=== PATIENT | male | born 1965 | race Hispanic/Latino ===

== ENCOUNTER 2021-04-24 16:02 | Emergency (ER) | payer SELFPAY ==
[~2021-04-24] VITALS: Ht 182.9 cm; Wt 121.6 kg
[~2021-04-24 16:02] MED LIST: AMBIEN10 MG PO; ASPIR 8181 MG PO; LEVOTHYROXINE75 MCG PO; LISINOPRIL10 MG PO; METHOCARBAMOL750 MG PO; MINOCYCLINE HCL50 MG PO; PRAVASTATIN SOD40 MG PO; TEMAZEPAM30 MG PO; TESTOSTERO200 MG/1 M IM
[2021-04-24] MEDS ORDERED: CASIRIVIMAB/IMDEVIMAB 10 ML in SODIUM CHLORIDE 0.9% 100 ML IV ONE (16:30)
== END 2021-04-24 16:55 | disposition home or self-care (01) ==
LOC: ER 16:08
DX: U07.1 COVID-19 (principal); R05.9 Cough, unspecified; I10 Essential (primary) hypertension; E78.5 Hyperlipidemia, unspecified; F41.9 Anxiety disorder, unspecified
CPT/HCPCS: 99283; J7050

== ENCOUNTER 2022-07-01 09:13 | Inpatient (IN) | payer BC, OTHER ==
[~2022-07-01] VITALS: Ht 185.4 cm; Wt 124.7 kg
[2022-07-01] MEDS ORDERED: SODIUM CHLORIDE 0.9% 1000ML 1,000 ML IV STA (09:36)
[2022-07-01] MEDS ORDERED: ONDANSETRON HCL INJ 2MG/ML 2ML 2 MG/ML VIAL IV STA (09:36)
[2022-07-01] MEDS ORDERED: DICYCLOMINE HCL 20 MG/2 ML VIAL IM ONE (09:45)
[2022-07-01 09:55] LABS: BASOPHILS # (AUTO) 0.1 (0.0-0.1); BASOPHILS % 0.6 % (0.0-1.0); EOSINOPHILS # (AUTO) 0.1 (0.0-0.4); HEMATOCRIT 52.6 % (38.2-49.6); HEMOGLOBIN 17.4 g/dL (14.0-18.0); LYMPHOCYTES # (AUTO) 1.4 (1.0-3.2); LYMPHOCYTES % 15.5 % (18.0-39.1); MEAN CORPUSCULAR HEMOGLOBIN 30.5 pg (28-32); MEAN CORPUSCULAR HGB CONC 33.1 g/dL (31-35); MEAN CORPUSCULAR VOLUME 92.3 fL (81-99); MONOCYTES # (AUTO) 0.6 (0.2-0.8); NEUTROPHILS # (AUTO) 6.6 (2.1-6.9); NEUTROPHILS % 74.9 % (38.7-80.0); PLATELET COUNT 196 x10e3/uL (140-360); RED CELL DISTRIBUTION WIDTH 13.4 % (11.7-14.4)
[2022-07-01] MEDS ORDERED: HYDROMORPHONE 1MG/1ML INJ IV STA (10:11)
[2022-07-01] MEDS ORDERED: DIATRIZOATE MEGL/DIATRIZOA SOD 30 ML BTL PO ONE (10:23)
[2022-07-01 10:35] LABS: CLARITY,URINE CLEAR (CLEAR); COLOR,URINE YELLOW (YELLOW); KETONES,URINE NEGATIVE (NEGATIVE); LEUKOCYTE ESTERASE ,URINE NEGATIVE (NEGATIVE); NITRITE,URINE NEGATIVE (NEGATIVE); PARTIAL THROMBOPLASTIN TIME 34.2 seconds (23.8-35.5); PROTEIN,URINE DIPSTICK 2+ (NEGATIVE); URINE UROBILINOGEN 1 mg/dL (0.2 - 1)
[2022-07-01 10:45] LABS: ALBUMIN 3.3 g/dL (3.5-5.0); ALBUMIN/GLOBULIN RATIO 0.8 (0.8-2.0); ANION GAP 12.2 mmol/L (8-16); BACTERIA,URINE RARE /HPF; CALCIUM 9.5 mg/dL (8.4-10.2); CREATININE, SERUM 0.98 mg/dL (0.72-1.25); EPITHELIAL CELLS,URINE RARE /LPF; MAGNESIUM 1.8 MG/DL (1.3-2.1); POTASSIUM 4.2 mmol/L (3.5-5.1); RBC,URINE 21-50 /HPF (0-5); WBC,URINE (MAN) 0-5 /HPF (0-5)
[2022-07-01 10:51] LABS: CREATINE KINASE MB 1.9 ng/mL (0-5.0)
[2022-07-01 11:26] LABS: INR 1.04; PROTHROMBIN TIME 13.8 seconds (11.9-14.5)
[2022-07-01] MEDS ORDERED: IOPAMIDOL 370 MG/ML 100 ML INFUS..BTL INJ ONE (11:28)
[2022-07-01] MEDS ORDERED: ONDANSETRON HCL INJ 2MG/ML 2ML 2 MG/ML VIAL IV PRN (12:30)
[2022-07-01] MEDS: HYDROMORPHONE 1MG/1ML INJ IV PRN ×4 (13:39→23:10)
[2022-07-01] MEDS: SODIUM CHLORIDE 0.9% 1000ML 1,000 ML IV SCH ×2 (13:39→21:13)
[2022-07-01] MEDS ORDERED: ACETAMINOPHEN 1000 MG/100 ML IV PRN (17:00)
[2022-07-01] MEDS ORDERED: ACETAMINOPHEN 1000 MG/100 ML 100 ML IV ONE (17:06)
[2022-07-01] MEDS: MEROPENEM 1 GM in SODIUM CHLORIDE 0.9% 100 ML IV SCH (20:09)
[2022-07-01 21:00] VITALS: BP 136/91
[2022-07-01 21:15] VITALS: BP 136/91
[2022-07-01 21:38] VITALS: BP 132/91
[2022-07-01] MEDS: TEMAZEPAM 15 MG CAP PO SCH (23:10)
[2022-07-02] VITALS (7 sets, daily range): BP systolic 124–149; BP diastolic 83–99
[2022-07-02] MEDS: HYDROMORPHONE 1MG/1ML INJ IV PRN ×5 (04:27→22:09)
[2022-07-02] MEDS: MEROPENEM 1 GM in SODIUM CHLORIDE 0.9% 100 ML IV SCH ×3 (04:34→20:25)
[2022-07-02] MEDS: SODIUM CHLORIDE 0.9% 1000ML 1,000 ML IV SCH ×3 (04:34→20:25)
[2022-07-02 06:10] LABS: BASOPHILS % 0.5 % (0.0-1.0); EOSINOPHILS # (AUTO) 0.1 (0.0-0.4); EOSINOPHILS % 2.3 % (0.0-6.0); HEMATOCRIT 46.4 % (38.2-49.6); HEMOGLOBIN 15.6 g/dL (14.0-18.0); LYMPHOCYTES # (AUTO) 1.3 (1.0-3.2); LYMPHOCYTES % 20.9 % (18.0-39.1); MEAN CORPUSCULAR HEMOGLOBIN 32.4 pg (28-32); MEAN CORPUSCULAR HGB CONC 33.6 g/dL (31-35); MEAN CORPUSCULAR VOLUME 96.5 fL (81-99); MONOCYTES # (AUTO) 0.4 (0.2-0.8); MONOCYTES % 7.2 % (4.4-11.3); NEUTROPHILS # (AUTO) 4.2 (2.1-6.9); PLATELET COUNT 146 x10e3/uL (140-360); RED BLOOD COUNT 4.81 x10e6/uL (4.3-5.7); RED CELL DISTRIBUTION WIDTH 14.1 % (11.7-14.4)
[2022-07-02 06:26] LABS: ALBUMIN 2.7 g/dL (3.5-5.0); ALBUMIN/GLOBULIN RATIO 0.7 (0.8-2.0); ANION GAP 13.2 mmol/L (8-16); CALCIUM 8.8 mg/dL (8.4-10.2); CREATININE, SERUM 0.95 mg/dL (0.72-1.25); POTASSIUM 4.2 mmol/L (3.5-5.1)
[2022-07-02] MEDS: TEMAZEPAM 15 MG CAP PO SCH (22:07)
[2022-07-03] VITALS (7 sets, daily range): BP systolic 135–156; BP diastolic 92–108
[2022-07-03] MEDS: HYDROMORPHONE 1MG/1ML INJ IV PRN ×6 (02:10→20:44)
[2022-07-03] MEDS: MEROPENEM 1 GM in SODIUM CHLORIDE 0.9% 100 ML IV SCH ×3 (04:23→20:44)
[2022-07-03] MEDS: SODIUM CHLORIDE 0.9% 1000ML 1,000 ML IV SCH ×3 (04:23→22:38)
[2022-07-03] MEDS: HYDRALAZINE HCL 20 MG/ML VIAL IV PRN (15:59)
[2022-07-03] MEDS: TEMAZEPAM 15 MG CAP PO SCH (22:31)
[2022-07-04] VITALS (7 sets, daily range): BP systolic 134–158; BP diastolic 84–99
[2022-07-04] MEDS: HYDROMORPHONE 1MG/1ML INJ IV PRN ×5 (00:47→20:18)
[2022-07-04] MEDS: MEROPENEM 1 GM in SODIUM CHLORIDE 0.9% 100 ML IV SCH ×3 (04:07→20:21)
[2022-07-04 06:12] LABS: BASOPHILS % 0.5 % (0.0-1.0); EOSINOPHILS # (AUTO) 0.1 (0.0-0.4); EOSINOPHILS % 2.4 % (0.0-6.0); HEMATOCRIT 48.2 % (38.2-49.6); HEMOGLOBIN 15.9 g/dL (14.0-18.0); LYMPHOCYTES # (AUTO) 1.2 (1.0-3.2); LYMPHOCYTES % 20.4 % (18.0-39.1); MEAN CORPUSCULAR VOLUME 90.9 fL (81-99); MONOCYTES # (AUTO) 0.6 (0.2-0.8); MONOCYTES % 9.9 % (4.4-11.3); NEUTROPHILS # (AUTO) 3.9 (2.1-6.9); NEUTROPHILS % 65.6 % (38.7-80.0); PLATELET COUNT 228 x10e3/uL (140-360); RED CELL DISTRIBUTION WIDTH 12.4 % (11.7-14.4)
[2022-07-04 06:35] LABS: ALBUMIN 2.8 g/dL (3.5-5.0); ALBUMIN/GLOBULIN RATIO 0.7 (0.8-2.0); ANION GAP 15.6 mmol/L (8-16); CALCIUM 8.8 mg/dL (8.4-10.2); CREATININE, SERUM 0.81 mg/dL (0.72-1.25); POTASSIUM 3.6 mmol/L (3.5-5.1)
[2022-07-04] MEDS: SODIUM CHLORIDE 0.9% 1000ML 1,000 ML IV SCH (13:45)
[2022-07-04] MEDS: HYDRALAZINE HCL 20 MG/ML VIAL IV PRN (17:20)
[2022-07-04] MEDS: TEMAZEPAM 15 MG CAP PO SCH (21:41)
[2022-07-05] VITALS: BP 139/91
[2022-07-05] MEDS: HYDROMORPHONE 1MG/1ML INJ IV PRN ×3 (00:42→08:22)
[2022-07-05] MEDS: SODIUM CHLORIDE 0.9% 1000ML 1,000 ML IV SCH (00:43)
[2022-07-05] MEDS: MEROPENEM 1 GM in SODIUM CHLORIDE 0.9% 100 ML IV SCH ×2 (03:29→11:06)
[2022-07-05 05:15] VITALS: BP 150/99
[2022-07-05] MEDS: HYDRALAZINE HCL 20 MG/ML VIAL IV PRN (07:46)
[2022-07-05 08:00] VITALS: BP 150/94
[2022-07-05 08:59] VITALS: BP 150/94
[2022-07-05] MEDS ORDERED: LISINOPRIL 20 MG TAB PO SCH (10:30)
[2022-07-05] MEDS ORDERED: ACETAMINOPHEN 325 MG TAB PO ONE (10:30)
[2022-07-05] MEDS ORDERED: flagyl PO (11:32)
[2022-07-05] MEDS ORDERED: LEVOFLOXACIN250 MG PO (11:32)
[2022-07-05 12:21] VITALS: BP 157/89
[2022-07-06] MEDS ORDERED: LISINOPRIL 20 MG TAB PO SCH (09:00)
== END 2022-07-05 12:27 | disposition home or self-care (01) | DRG 392 ==
LOC: ER 09:16 → ERHOLD 12:36 → MED/SURG2 20:30
PROVIDERS: ADMIT Internal Medicine; ATTEND Internal Medicine
DX: K57.20 Diverticulitis of large intestine with perforation and abscess without bleeding (principal); I10 Essential (primary) hypertension; Z20.822 Contact with and (suspected) exposure to COVID-19
CPT/HCPCS: 0223U; 36415; 74177; 80053; 81001; 82550; 82553; 83690; 83735; 84484; 85025; 85610; 85730; 87086; 99252; 99283; 99284; J0360; J0500; J1170; J2185; J2405; J2543; J7030; J7050; Q9963; Q9967